=== PATIENT | male | born 1960 | race Hispanic/Latino ===

== ENCOUNTER 2022-11-27 12:14 | Emergency (ER) | payer SELFPAY ==
[~2022-11-27] VITALS: Ht 172.7 cm; Wt 87.1 kg
[2022-11-27 12:20] VITALS: O2SAT 99
== END 2022-11-27 14:15 | disposition home or self-care (01) ==
LOC: ER 12:43
DX: S93.691A Other sprain of right foot, initial encounter (principal); X50.1XXA Overexertion from prolonged static or awkward postures, initial encounter; Y93.01 Activity, walking, marching and hiking; Y92.89 Other specified places as the place of occurrence of the external cause
CPT/HCPCS: 99283